=== PATIENT | male | born 1990 | race Caucasian/White ===

== ENCOUNTER 2016-10-22 16:19 | Emergency (ER) | payer BC ==
[2016-10-22 16:33] VITALS: BP 144/55
[2016-10-22] MEDS ORDERED: Ketorolac INJ* 60 MG/2 ML VIAL IM ONE (17:10)
--- NOTE | 2016-10-22 17:42 | RAD ---
INDICATION: Knee pain injury COMPARISON: None TECHNIQUE: AP, lateral, tunnel, and sunrise were obtained. FINDINGS: There are no acute bony findings. There is a small exostosis arising from the medial tibial metaphysis. The knee articulates normally. There is no joint effusion. IMPRESSION: NO ACUTE BONY CHANGE. SMALL BONY EXOSTOSIS MEDIAL KNEE.
--- NOTE | 2016-10-22 19:23 | ED ---
Luzma Lopez Erika, scribed for Petey Kathleen MD on 10/22/16 at 1702 . Lower Extremity - HPI Summary HPI Summary: Patient is a 25-year-old male presenting to the ED with a CC of right knee pain starting [facility]. Pt reports that he was dribbling a basketball when he pivoted and felt his knee "jerk." Now, he reports pain at the lateral aspect of the knee and under the knee, and he is unable to bend the knee. Pt does report that he broke the growth plate in his right knee about 5 years ago, which required a knee immobilizer but no cast and no surgery. Pt currently lives at [facility]. He takes suboxone, hydroxyzine, and trazodone. He denies FHx. Pt smoked cigarettes in the past before he started rehab 2 months ago. - History of Current Complaint Chief Complaint: ED Stated Complaint: KNEE INJURY Time Seen by Provider: 10/22/16 16:23 Hx Obtained From: Patient Mechanism Of Injury: Twisted Onset of Pain: Post Accident Onset/Duration: Hours Severity Currently: Moderate Pain Intensity: 3 Pain Scale Used: 0-10 Numeric Timing: Constant Location: Is Discrete @ - R knee Associated Signs And Symptoms: Positive: Swelling Aggravating Factor(s): Movement Alleviating Factor(s): Rest - Allergies/Home Medications Allergies/Adverse Reactions: Allergies Allergy/AdvReac Type Severity Reaction Status Date / Time No Known Drug Allergy Allergy none Verified 10/22/16 16:38 PMH/Surg Hx/FS Hx/Imm Hx Endocrine/Hematology History: Denies: Hx Diabetes Cardiovascular History: Denies: Hx Hypertension Infectious Disease History: Denies: Traveled Outside the [place] in Last 30 Days - Family History Known Family History: Negative: Cardiac Disease, Diabetes - Social History Lives: Intermediate - [facility] Hx Tobacco Use: Yes Smoking Status (MU): Former Smoker - stopped 2 months ago dt rehab Review of Systems Negative: Fever Positive: Arthralgia - R knee pain, decreased ROM All Other Systems Reviewed And Are Negative: Yes Physical Exam - Summary Physical Exam Summary: VITAL SIGNS: Reviewed. GENERAL: Patient is a well developed and nourished male who is lying comfortable in the stretcher. Patient is not in any acute respiratory distress. HEAD AND FACE: No signs of trauma. No ecchymosis, hematomas or skull depressions. EYES: PERRLA, EOMI x 2 EARS: Hearing grossly intact. NECK: Supple, trachea is midline, no adenopathy, no JVD CHEST: Symmetric, no tenderness at palpation LUNGS: Clear to auscultation bilaterally. No wheezing or crackles. CVS: Regular rate and rhythm, S1 and S2 present, no murmurs or gallops appreciated. ABDOMEN: Soft, non-tender.Bowel sounds are normal. EXTREMITIES: Right kne with no ecchymosis, deformity, swelling. Positive decrease ROM secondary to pain. NEURO: Alert and oriented x 3. No acute neurological deficits. Speech is normal and follows commands. SKIN: Dry and warm Triage Information Reviewed: Yes Vital Signs On Initial Exam: Initial Vitals Temp Pulse Resp BP Pulse Ox 97.6 F 98 15 144/55 100 10/22/16 16:28 10/22/16 16:28 10/22/16 16:28 10/22/16 16:28 10/22/16 16:28 Vital Signs Reviewed: Yes Diagnostics - Vital Signs Vital Signs Temp Pulse Resp BP Pulse Ox 10/22/16 16:28 97.6 F 98 15 144/55 100 - Laboratory Lab Statement: Any lab studies that have been ordered have been reviewed, and results considered in the medical decision making process. - Radiology R Knee XR Radiology Interpretation Completed By: Radiologist - IMPRESSION: NO ACUTE BONY CHANGE. SMALL BONY EXOSTOSIS MEDIAL KNEE. Lower Extremity Course/Dx - Course Assessment/Plan: Patient is a 25-year-old male presenting to the ED with a CC of right knee pain starting [facility]. Pt reports that he was dribbling a basketball when he pivoted and felt his knee "jerk." Now, he reports pain at the lateral aspect of the knee and under the knee, and he is unable to bend the knee. Pt does report that he broke the growth plate in his right knee about 5 years ago, which required a knee immobilizer but no cast and no surgery. Knee xray; No acute bony change. Small bony exostosis medial knee. In the ED course he was given Toradol for pain. I believe his symptoms are more related to a tendon or meniscus injury therefore, he will be place in a Knee immobilizer and given crutches. He will be given a prescription for Naproxen. I discussed all my findings and test results with the patient. Patient understands and agrees. Patient was instructed to return to the emergency room immediately if any of the symptoms return or worsens. Patient understands and agrees. Plan of care was discussed with the patient and patient understands and agrees with the plan of care. All questions were answered at patient satisfaction. There were no further complaints or concerns. Patient was instructed to follow up with primary care physician within 3 to 5 days. Patient is hemodynamically stable. Patient is alert and oriented x 3. No acute neurological deficits. - Diagnoses Differential Diagnosis/HQI/PQRI: Positive: Arthritis, Bursitis, Dislocation, Fracture (Closed), Fracture (Open), Sprain, Strain Provider Diagnoses: Knee pain, Tendon injury Discharge - Discharge Plan Condition: Stable Disposition: HOME Prescriptions: Naproxen TAB* [Naprosyn TAB*] 500 mg PO Q8H PRN #15 tab PRN Reason: Pain Patient Education Materials: Knee Pain (ED), Knee Immobilizer (ED) Referrals: Emani Young PA [Primary Care Provider] - Additional Instructions: Please use the knee immobilizer as instructed. The documentation as recorded by the Luzma jamil Erika accurately reflects the service I personally performed and the decisions made by Hever galeano Walter, MD.
== END 2016-10-22 18:22 | disposition home or self-care (01) ==
LOC: ED 16:19
DX: S89.91XA Unspecified injury of right lower leg, initial encounter (principal); X50.9XXA Other and unspecified overexertion or strenuous movements or postures, initial encounter; Y93.67 Activity, basketball; Y92.9 Unspecified place or not applicable; Z87.891 Personal history of nicotine dependence
CPT/HCPCS: 96372; 99282; J1885